=== PATIENT | male | born 1930 | race Caucasian/White ===

== ENCOUNTER 2018-02-27 04:58 | Emergency (ER) | payer MEDICARE, OTHER ==
--- NOTE | 2018-02-27 05:11 | Emergency Department Record ---
History of Present Illness - General Source: Patient, EMS Mode of Arrival: EMS Limitations: Other (Dementia) - History of Present Illness Initial Comments: 87 yo male presents with EMS from a local SNF after a fall. By report he had been seen 5 minutes prior to his fall. He got out of bed and was found on "all fours" on the floor. He had a small superficial abrasion to the head. He denies any pain. Per EMS he is at his baseline mental status. He is not on any anticoagulants. No extremities abrasions or deformities. No report of any recent changes in his health per EMS. By report he ambulated to the bathroom after the fall. Complaint: Fall -: Minutes(s) Fall From: Standing When Fall Occurred: Just prior to arrival Fall Witnessed: No Place Fall Occurred: detention/SNF Loss of Consciousness: None Prolonged Down Time?: No Symptoms Prior to Fall: None Location: Head Severity: Mild Associated Symptoms: Denies - Tyron Coma Scale Eye Response: (4) Open spontaneously Motor Response: (6) Obeys commands Verbal Response: (5) Oriented Tyron Total: 15 <MARILU ESPINOZA - Last Filed: 02/27/18 06:57> <Juliane Minaya - Last Filed: 02/27/18 08:52> - General Chief Complaint: Fall Injury Stated Complaint: FALL Time Seen by Provider: 02/27/18 05:02 - Related Data Home Medications Medication Instructions Recorded Confirmed Last Taken Atorvastatin Calcium [Lipitor] 10 mg PO DAILY 02/27/18 02/27/18 02/26/18 Donepezil HCl [Aricept] 10 mg PO DAILY 02/27/18 02/27/18 02/26/18 Fluoxetine HCl [Prozac] 10 mg PO DAILY 02/27/18 02/27/18 02/26/18 Lisinopril/Hydrochlorothiazide 1 each PO DAILY 02/27/18 02/27/18 02/26/18 [Lisinopril-Hctz 20-12.5 mg Tab] Lorazepam [Ativan] 0.5 mg PO DAILY 02/27/18 02/27/18 02/26/18 Memantine HCl [Namenda Xr] 28 mg PO DAILY 02/27/18 02/27/18 02/26/18 Trazodone HCl [Desyrel] 50 mg PO QHS 02/27/18 02/27/18 02/26/18 Allergies Allergy/AdvReac Type Severity Reaction Status Date / Time nitrous oxide Allergy PT UNSURE Verified 02/27/18 05:18 OF REACTION shellfish derived Allergy PT UNSURE Verified 02/27/18 05:18 OF REACTION Review of Systems Constitutional: Denies: Chills, Fever, Malaise, Weakness Eyes: Denies: Eye discharge ENT: Denies: Congestion, Throat pain Respiratory: Denies: Cough Cardiovascular: Denies: Chest pain Endocrine: Denies: Fatigue Gastrointestinal: Denies: Abdominal pain, Diarrhea, Nausea, Vomiting Genitourinary: Denies: Hematuria Musculoskeletal: Denies: Arthralgia, Back pain, Joint swelling, Myalgia Skin: Denies: Bruising, Change in color, Rash Neurological: Denies: Headache, Numbness, Vertigo, Weakness Psychiatric: Denies: Anxiety Hematological/Lymphatic: Denies: Blood Clots, Easy bleeding, Easy bruising <MARILU ESPINOZA - Last Filed: 02/27/18 06:57> Physical Exam - General General Appearance: Alert, Cooperative, No acute distress, Other (Relaxed, answers questions, some limitation due to dementia) Limitations: No limitations - Head Head exam: Normal inspection Head exam detail: Abrasion Image of Face/Head: 1 - superficial abrasion - Eye Eye exam: Normal appearance, PERRL. negative: Conjunctival injection, Scleral icterus - ENT ENT exam: Normal exam, Mucous membranes moist Ear exam: Normal external inspection Nasal Exam: Normal inspection Mouth exam: Normal external inspection - Neck Neck exam: Normal inspection, Full ROM. negative: Tenderness - Respiratory Respiratory exam: Normal lung sounds bilaterally. negative: Respiratory distress - Cardiovascular Cardiovascular Exam: Regular rate, Normal rhythm, Normal heart sounds - GI/Abdominal GI/Abdominal exam: Soft. negative: Guarding, Rebound, Rigid, Tenderness - Rectal Rectal exam: Deferred - exam: Deferred - Extremities Extremities exam: Normal inspection, Full ROM, Normal capillary refill. negative: Calf tenderness, Joint swelling, Tenderness - Back Back exam: Reports: Full ROM. Denies: CVA tenderness (R), CVA tenderness (L), Muscle spasm, Tenderness, Vertebral tenderness - Neurological Neurological exam: Alert. negative: Motor sensory deficit - Psychiatric Psychiatric exam: Normal affect, Normal mood - Skin Skin exam: Abrasion <MARILU ESPINOZA - Last Filed: 02/27/18 06:57> Course - Reevaluation(s) Reevaluation #1: 02/27/18 06:31 The HCT was negative for acute injury. volume loss with ventricular enlargement. lateral and third ventricles dilates somewhat out of proportion to fourth therefore normal pressure hydrocephalus may be present. No old studies available. By history from EMS the patient is at his baseline. No report of mental status changes. Contacting family to notify regarding the results and to discuss current condition or new changes 02/27/18 06:36 Daughter is coming into the ED CT of the cervical spine reviewed. Multilevel spondylosis without acute cervical spine fracture. 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 C5-C6 surgical material in canal. No old studies. When family arrives additional history will be obtained 02/27/18 06:[address] [address] Mchugh called from to report no acute findings but recommends follow up CT of the head to monitor progression and MRI of Cervical spine to assess the syrinx. He did not think the syrinx has any relationship to the HCT findings. When family arrives old records can be obtained once it is known where prior studies had been performed. 02/27/18 06:49 02/27/18 06:52 Patient remains pain free, relaxed, no complaints. 02/27/18 06:57 The case was signed out to Dr Minaya to discuss the results with the family, discuss with family when present if there are any new changes, and where to ask for most recent prior studies of the head and neck. <MARILU ESPINOZA - Last Filed: 02/27/18 06:57> Vital Signs 02/27/18 02/27/18 02/27/18 05:00 06:00 06:55 Temperature 97.8 F Pulse Rate 61 Pulse Rate [ 72 56 L Pulse Ox Probe] Respiratory 20 20 18 Rate Blood Pressure 144/69 Blood Pressure 137/69 139/66 [Left Arm] Pulse Ox 95 95 97 - Reevaluation(s) Reevaluation #2: 02/27/18 08:42 no old records found at [facility]. scans d/w dr suero who felt all findings are chronic and old and related to old surgery. dr dickerson felt none of it was acute. d/w daughter. <Juliane Minaya - Last Filed: 02/27/18 08:52> Medical Decision Making - Lab Data Result diagrams: 02/27/18 07:45 02/27/18 07:45 Lab Results 02/27/18 02/27/18 02/27/18 Range/Units 07:45 07:45 07:45 WBC 6.6 (4.2-12.2) K/uL RBC 4.75 (4.40-5.70) M/uL Hgb 14.1 (14.0-18.0) gm/dl Hct 45.2 (42.0-52.0) % MCV 95.2 (81-97) fl MCH 29.7 (27-33) pg MCHC 31.2 L (32-36) g/dl RDW 13.2 (11.5-14.5) % Plt Count 158 (130-400) K/uL MPV 10.9 H (7.4-10.4) fl Neutrophils % 47.0 (47-80) % Band Neutrophils % 0.0 (0-5) % Eosinophils % Not Reportable Basophils % Not Reportable Lymphocytes 39.0 (16-45) % Monocytes 13.0 H (0-9) % Basophils 0.0 (0-6) % Eosinophil Count 1.0 (0-6) % Sodium 145 (136-145) mmol/L Potassium 4.9 H (3.4-4.5) mmol/L Chloride 100 (98-107) mmol/L Carbon Dioxide 30.0 H (22-29) mmol/L Anion Gap 15.0 (7-16) BUN 27 H (8-23) mg/dL Creatinine 1.3 H (0.7-1.2) mg/dL Estimated GFR 56 mL/min Random Glucose 82 (74-109) mg/dL Calcium 9.1 (8.8-10.2) mg/dL Total Bilirubin 0.50 (0.2-1.0) mg/dL AST 20 (10.0-50.0) U/L ALT 22 (<41) U/L Alkaline Phosphatase 108 (40-129) U/L Total Protein 6.8 (6.6-8.7) g/dL Albumin 3.8 L (4.0-5.0) g/dL Globulin 3.0 (1.4-4.8) gm/dL Albumin/Globulin Ratio 1.3 (1.1-1.8) Urine Color Yellow Urine Appearance Clear Urine pH 7.0 (5.0-8.0) Ur Specific [place] 1.010 (1.002-1.030) Urine Protein Negative (NEGATIVE) Urine Glucose (UA) Negative (NEGATIVE) Urine Ketones Negative (NEGATIVE) Urine Blood Negative (NEGATIVE) Urine Nitrite Negative (NEGATIVE) Urine Bilirubin Negative (NEGATIVE) Urine Urobilinogen 0.2 (0.20 - 1.00) E.U./dL Ur Leukocyte Esterase Negative (NEGATIVE) <Juliane Minaya - Last Filed: 02/27/18 08:52> Disposition Disposition: Discharge <MARILU ESPINOZA - Last Filed: 02/27/18 06:57> Disposition: Discharge <Juliane Minaya - Last Filed: 02/27/18 08:52> Clinical Impression: Syrinx of spinal cord Head contusion Qualifiers: Encounter type: initial encounter Contusion of head detail: unspecified part of head Qualified Code(s): S00.93XA - Contusion of unspecified part of head, initial encounter Disposition: Home, Self-Care Condition: (1) Good Instructions: Fall Prevention for Older Adults (ED), Head Injury (ED) Additional Instructions: Return if there are any concerns after the ED visit. follow up with family doctor and neuro Follow up with your family doctor to review this ED visit and the tests. follow up with family doctor and neuro. return sooner if worse Forms: Patient Portal Access Quality - Quality Measures Quality Measures: Blunt Head Trauma (>2yr) - Blunt Head Trauma - Adult Quality Measure: Measure #415: Utilization of CT for Minor Blunt Head Trauma ICD10 Codes Entered: Yes Tyron Score: Please complete Tyron Coma Scale above - Blood Pressure Screening Does Patient Have Any of the Following: No Blood Pressure Classification: Hypertensive Reading Systolic Measurement: 144 Diastolic Measurement: 69 <MARILU ESPINOZA - Last Filed: 02/27/18 06:57> - Quality Measures Quality Measures: Blunt Head Trauma (>2yr) - Tyron Coma Scale Tyron Coma Scale: [place] Coma Scale Eye Response: (4) Open spontaneously Motor Response: (6) Obeys commands Verbal Response: (5) Oriented Tyron Total: 15 - Blunt Head Trauma - Adult Quality Measure: Measure #415: Utilization of CT for Minor Blunt Head Trauma ICD10 Codes Entered: Yes Was CT ordered: Yes Does Patient Have Any of the Following: No Exclusions Patient Presented Within 24 Hours of Injury: Yes Tyron Score: [address] for Minor Blunt Head Trauma: < CT Done, Appropriate Indication > [G9529] Additional Inclusion Criteria: Within 24hrs (AND) GCS of 15 (AND) CT ordered. [ G9530] Indications For CT: Age 65 Years and Older - Blood Pressure Screening Does Patient Have Any of the Following: No Blood Pressure Classification: Hypertensive Reading Systolic Measurement: 144 Diastolic Measurement: 69 Screening for High Blood Pressure: < Pre-Hypertensive BP, F/U Documented > [ G8950] Pre-Hypertensive Follow-up Interventions: Follow-up with rescreen every year. <Juliane Minaya - Last Filed: 02/27/18 08:52>
[2018-02-27 07:52] LABS: HEMATOCRIT 45.2 % (42.0-52.0); HEMOGLOBIN 14.1 gm/dl (14.0-18.0); MEAN CELL VOLUME 95.2 fl (81-97); MEAN CORPUSCULAR HEMOGLOBIN 29.7 pg (27-33); MEAN CORPUSCULAR HGB CONC 31.2 g/dl (32-36); MEAN PLATELET VOLUME 10.9 fl (7.4-10.4); PLATELET COUNT 158 K/uL (130-400); RED BLOOD COUNT 4.75 M/uL (4.40-5.70); RED CELL DISTRIBUTION WIDTH 13.2 % (11.5-14.5); URINE APPEARANCE CLEAR; URINE BILIRUBIN NEGATIVE (NEGATIVE); URINE BLOOD NEGATIVE (NEGATIVE); URINE COLOR YELLOW; URINE GLUCOSE (UA) NEGATIVE (NEGATIVE); URINE KETONE NEGATIVE (NEGATIVE); URINE LEUKOCYTE ESTERASE NEGATIVE (NEGATIVE); URINE NITRITE NEGATIVE (NEGATIVE); URINE PROTEIN NEGATIVE (NEGATIVE); URINE UROBILINOGEN 0.2 E.U./dL (0.20 - 1.00); WHITE BLOOD COUNT W/O DIFF 6.6 K/uL (4.2-12.2)
[2018-02-27 08:05] LABS: BILIRUBIN,TOTAL 0.5 mg/dL (0.2-1.0); CREATININE 1.3 mg/dL (0.7-1.2)
[2018-02-27 08:06] LABS: TOTAL PROTEIN 6.8 g/dL (6.6-8.7)
[2018-02-27 08:11] LABS: ALB/GLOB RATIO 1.3 (1.1-1.8); ALBUMIN 3.8 g/dL (4.0-5.0)
--- NOTE | 2018-02-28 07:32 | CT SCAN REPORT ---
DATE: 02/27/2018. EXAM: CT OF THE BRAIN WITHOUT CONTRAST. HISTORY: Trauma. TECHNIQUE: CT of the brain without contrast. COMPARISON: None. FINDINGS: The globes are intact. The paranasal sinuses and mastoid air cells are unremarkable. No displacement or depressed skull fracture. No intra- or extra-axial hemorrhage. CT limited for evaluation of acute infarct. No CT evidence for large or territorial acute infarct. No mass or midline shift. Diffuse atrophy. Hypodensities in the periventricular and subcortical white matter consistent with sequelae of small-vessel ischemic change. IMPRESSION: ATROPHY. SMALL-VESSEL ISCHEMIC CHANGE. JOB NUMBER: [id number] MTDD
--- NOTE | 2018-02-28 07:46 | CT SCAN REPORT ---
DATE: 02/27/2018. EXAM: CT OF THE CERVICAL SPINE. HISTORY: Fall. TECHNIQUE: Axial CT images of the cervical spine with coronal and sagittal reconstructions. COMPARISON: None. FINDINGS: Evaluation of spinal canal contents limited due to CT technique. However, vertebral body height is preserved. Equivocal anterolisthesis of C4 with respect to C5, likely degenerative or developmental in nature. Extensive postsurgical changes extending from the C5 to the C7 levels with posterior unroofing. Partial bony fusion of these vertebral bodies. Diffuse degenerative changes with endplate degenerative change and facet arthropathy throughout the cervical spine. Reversal of the normal cervical lordosis which may relate to muscle spasm/strain. The atlantoaxial space is preserved. Lateral masses are not displaced. Questionable syrinx formation at approximately C2-C4. This could further be assessed with MRI or correlate with any prior exams. IMPRESSION: REVERSAL OF THE NORMAL CERVICAL LORDOSIS WHICH MAY RELATE TO MUSCLE SPASM/ STRAIN. DIFFUSE DEGENERATIVE CHANGE. POSTSURGICAL CHANGES FROM C5 THROUGH C7 WITH PARTIAL BONY FUSION. QUESTIONABLE SYRINX FORMATION OF THE UPPER CERVICAL SPINE, ABOVE. JOB NUMBER: [id number] MTDD
== END 2018-02-27 09:19 | disposition home or self-care (01) ==
LOC: ER 04:58
DX: S00.93XA Contusion of unspecified part of head, initial encounter (principal); M50.20 Other cervical disc displacement, unspecified cervical region; F03.90 Unspecified dementia, unspecified severity, without behavioral disturbance, psychotic disturbance, mood disturbance, and anxiety; W06.XXXA Fall from bed, initial encounter; Y92.122 Bedroom in nursing home as the place of occurrence of the external cause
CPT/HCPCS: 70450; 72125; 80053; 81003; 85027; 99283; 99284